=== PATIENT | male | born 1975 | race Hispanic/Latino ===

== ENCOUNTER 2025-02-24 20:44 | Emergency (ER) | payer SELFPAY ==
[~2025-02-24] VITALS: Ht 185.4 cm; Wt 108.9 kg
[2025-02-24 21:20] VITALS: PULSE 82; RESP 16; TEMP 98.6
[2025-02-24 23:27] VITALS: BP 163/99; O2SAT 100
== END 2025-02-24 23:20 | disposition home or self-care (01) ==
LOC: ER 21:14
DX: M79.671 Pain in right foot (principal); S90.31XA Contusion of right foot, initial encounter; W20.8XXA Other cause of strike by thrown, projected or falling object, initial encounter; Y92.89 Other specified places as the place of occurrence of the external cause
CPT/HCPCS: 99283